=== PATIENT | female | born 1985 | race African-American/Black ===

== ENCOUNTER 2022-05-14 23:37 | Emergency (ER) | payer OTHER ==
[~2022-05-14] VITALS: Ht 170.2 cm; Wt 63.5 kg
[2022-05-15] MEDS ORDERED: ONDANSETRON HCL INJ 2MG/ML 2ML 2 MG/ML VIAL IV STA (00:26)
[2022-05-15] MEDS ORDERED: HYDROCODONE/APAP 10MG-325MG TAB PO ONE (00:30)
[2022-05-15] MEDS ORDERED: LORAZEPAM INJ 2 MG/ML VIAL IV ONE (00:30)
[2022-05-15] MEDS ORDERED: CLONIDINE HCL 0.2 MG TAB PO ONE (00:30)
[2022-05-15] MEDS ORDERED: ONDANSETRON HCL 4 MG ORAL DISINTEGRATING TAB PO ONE (01:30)
[2022-05-15] MEDS ORDERED: LORAZEPAM 1 MG TAB PO PRN (01:30)
[2022-05-15] MEDS ORDERED: NIFEDIPINE CR 30 MG TAB PO ONE (02:00)
[2022-05-15] MEDS ORDERED: HYDROCODON-ACE1 EAC9 PO (02:54)
[2022-05-15] MEDS ORDERED: ATIVAN2 MG PO (02:54)
[2022-05-15] MEDS ORDERED: NIFEDIPINE ER30 M1 PO (02:54)
[2022-05-15] MEDS ORDERED: AUGMENTIN 500-1 EACH PO (02:54)
[2022-05-15] MEDS ORDERED: ONDANSETRON ODT4 MG PO (02:54)
[2022-05-15] MEDS ORDERED: CLONIDINE HCL0.2 MG PO (02:54)
[2022-05-15 04:17] VITALS: BP 186/115
== END 2022-05-15 03:30 | disposition home or self-care (01) ==
LOC: ER 23:50
DX: R06.02 Shortness of breath (principal); J18.9 Pneumonia, unspecified organism; I12.0 Hypertensive chronic kidney disease with stage 5 chronic kidney disease or end stage renal disease; N18.6 End stage renal disease; Z99.2 Dependence on renal dialysis; M32.9 Systemic lupus erythematosus, unspecified; F41.9 Anxiety disorder, unspecified; G89.29 Other chronic pain; Z86.73 Personal history of transient ischemic attack (TIA), and cerebral infarction without residual deficits
CPT/HCPCS: 71045; 99284; Q0162